=== PATIENT | female | born 1965 | race Caucasian/White ===

== ENCOUNTER → 2017-11-10 16:06 | Outpatient (CLI) | payer MEDICAID, SELFPAY ==
--- NOTE | 2017-11-10 16:10 | MM_ITS ---
MM Dig screening mamm BI w/CAD CAD Screening COMPARISON: None, previous mammograms more than 10 years ago and they're not available for review INDICATION: There is no personal or family history of breast cancer. There has been a previous biopsy right breast for benign disease TECHNIQUE: Standard CC and MLO images were obtained. R2 CAD reviewed. FINDINGS: Scattered fibroglandular densities are seen in both breast and the findings are bilateral and symmetrical. There is no suspicious lesion and there are no suspicious microcalcifications. IMPRESSION: Fibrofatty parenchyma with no suspicious lesion seen BI-RADS Category: 1 Negative RECOMMENDED FOLLOW-UP: 1YR - 1 YEAR FOLLOW-UP (A letter has been sent to the patient regarding results of the study.)
== END ==
PROVIDERS: PCP Emergency Medicine; Visit Provider Emergency Medicine
DX: Z12.31 Encounter for screening mammogram for malignant neoplasm of breast (principal)
CPT/HCPCS: 77067

== ENCOUNTER → 2018-08-10 17:19 | Outpatient (CLI) | payer MEDICAID, SELFPAY ==
[2018-08-10 17:36] LABS: Basophils % 0.3 % (0.1-2.0); Eosinophils # 0.2 K/mm3 (0.0-0.4); Eosinophils % 3.2 % (0.1-12.0); Hematocrit 40.1 % (37.0-47.0); Hemoglobin 13.4 g/dL (12.2-16.2); Lymphocytes # 2.2 K/mm3 (0.7-4.5); Lymphocytes % 34.5 % (10-50); Mean Corpuscular HGB Conc 33.4 g/dL (31.8-35.4); Mean Corpuscular Hemoglobin 29.9 pg (27.0-31.2); Mean Corpuscular Volume 89.4 fl (81-99); Mean Platelet Volume 9.5 fl (7.4-10.4); Monocytes # 0.4 K/mm3 (0.1-1.0); Monocytes % 6.9 % (1.7-9.3); Neutrophils # 3.5 K/mm3 (1.8-7.8); Neutrophils % 55.1 % (37.0-80.0); Platelet Count 264 K/mm3 (142-424); Red Blood Count 4.49 M/mm3 (4.20-5.40); Red Cell Distribution Width 13.7 % (11.5-17.5); White Blood Count 6.4 K/mm3 (4.8-10.8)
[2018-08-10 17:55] LABS: Alanine Aminotransferase 47 U/L (12-78); Albumin Level 4.2 gm/dL (3.4-5.0); Albumin/Globulin Ratio 1.4 (1.1-1.8); Alkaline Phosphatase 172 U/L (46-116); Anion Gap 13.3 mEq/L (5-15); Aspartate Amino Transferase 39 U/L (15-37); Bilirubin,Total 0.4 mg/dL (0.2-1.0); Blood Urea Nitrogen 15 mg/dL (7-18); C-Reactive Protein 1.3 mg/L (0.0-0.9); Calcium 9.2 mg/dL (8.5-10.1); Carbon Dioxide 26 mmol/L (21.0-32.0); Chloride 103 mmol/L (98-107); Chol/HDL Ratio 3.1 (1-3.5); Cholesterol 160 mg/dL (140-200); Creatinine,Serum 0.68 mg/dL (0.55-1.02); Estimated Glomerular Filt Rate 90 ml/min (>60); GFR (African American) 109 ML/MIN (>60); Glucose 87 mg/dL (74-106); HDL Cholesterol 51 mg/dL (29-89); LDL Cholesterol 97 mg/dL (0-130); Potassium 4.3 mmoL/L (3.5-5.1); Sodium 138 mmol/L (136-145); T4 (Thyroxine) 7.3 ug/dl (4.7-13.3); Thyroid Stimulating Hormone 1.98 uIU/ml (0.358-3.740); Total Protein,Serum 7.2 gm/dL (6.4-8.2); Triglycerides 60 mg/dL (30-200); VLDL Cholesterol 12 mg/dL (0-40)
[2018-08-10 19:03] LABS: Erythrocyte Sedimentation Rate 16 mm/hr (0-30)
[2018-08-12 12:12] LABS: Anti-Centromere B Antibodies <0.2 AI (0.0-0.9); Anti-Jo-1 <0.2 AI (0.0-0.9); Anti-Smith Antibody <0.2 AI (0.0-0.9); Antichromatin Antibodies <0.2 AI (0.0-0.9); Antiscleroderma-70 Antibodies <0.2 AI (0.0-0.9); RNP Antibodies 0.5 AI (0.0-0.9); Sjogren's Anti-SS-A <0.2 AI (0.0-0.9); Sjogren's Anti-SS-B <0.2 AI (0.0-0.9)
[2018-08-13 06:40] LABS: RA Latex Turbid. <10.0 IU/mL (0.0-13.9); Vitamin D 25 Hydroxy 15.4 ng/mL (30.0-100.0)
[2018-08-13 06:41] LABS: Anti-DNA (DS) Ab Qn 1 IU/mL (0-9)
[2018-08-15 15:02] LABS: Anti-Cyclic Citrullinated Pept 3 units (0-19)
== END ==
PROVIDERS: Visit Provider Physician Assistant
DX: M79.7 Fibromyalgia (principal); M25.50 Pain in unspecified joint; R63.5 Abnormal weight gain
CPT/HCPCS: 80053; 80061; 82652; 84436; 84443; 85025; 85651; 86140; 86200; 86225; 86235; 86431

== ENCOUNTER → 2018-11-15 09:02 | Outpatient (CLI) | payer MEDICAID, SELFPAY ==
--- NOTE | 2018-11-15 09:05 | US_ITS ---
US abdomen complete HISTORY: ITS.REASON: Abdominal pain and swelling ORDERING PHYSICIAN: TERRANCE Rodriguez PATIENT AGE: 53 years COMPARISON: None FINDINGS: PANCREAS:Unremarkable. No obvious mass or abnormal fluid collection. No ductal dilatation LIVER:No focal liver lesions demonstrated. Homogeneous echogenicity. No intrahepatic biliary ductal dilatation evident RIGHT KIDNEY:Unremarkable. Normal size and echogenicity. No hydronephrosis LEFT KIDNEY:Unremarkable. No hydronephrosis. Normal size and echogenicity. GALLBLADDER: Gallbladder is contracted with mildly thickened wall at nearly 5 mm. Common bile duct is normal at 5 mm. Suspect sludge within the gallbladder. No shadowing stones apparent. AORTA:No evidence of aneurysmal dilatation. SPLEEN:Unremarkable. Normal size and echogenicity ASCITES:None demonstrated. IMPRESSION: Contracted gallbladder with mildly thickened wall with sludge within the gallbladder. No shadowing stones. Otherwise negative abdominal ultrasound
== END ==
PROVIDERS: PCP Physician Assistant; Visit Provider Physician Assistant
DX: R19.00 Intra-abdominal and pelvic swelling, mass and lump, unspecified site (principal)
CPT/HCPCS: 76700

== ENCOUNTER → 2018-12-12 09:32 | Outpatient (CLI) | payer MEDICAID, SELFPAY ==
--- NOTE | 2018-12-12 09:33 | NM_ITS ---
PROCEDURE: NM HEPATOBILIARY W PHARM CLINICAL INDICATION: GB sludge Right upper quadrant pain, abnormal ultrasound COMPARISON: [facility] US abdomen complete from 11/15/2018 TECHNIQUE: Dose: 7.99 mCi technetium Choletec 1.3 mcg of CCK FINDINGS: Homogeneous activity is present within hepatic parenchyma. Gallbladder activity is visible by 15 minutes and small bowel activity by 45 minutes. Gallbladder ejection fraction is normal at 83 percent. Patient did complain of slight pain with CCK infusion. IMPRESSION: Unremarkable exam. No evidence of common or cystic duct obstruction with normal gallbladder ejection fraction Dictated by: Umair Donovan MD 12/12/2018 20:55 Signed by: <Electronically signed by Umair Donovan MD in [place]> 12/12/2018 20:55
== END ==
PROVIDERS: PCP Physician Assistant; Visit Provider Physician Assistant
DX: K82.8 Other specified diseases of gallbladder (principal)
CPT/HCPCS: 78227; A9537; J2805

== ENCOUNTER → 2020-11-25 15:37 | Outpatient (CLI) | payer MEDICAID, SELFPAY | PROVIDERS: PCP Physician Assistant; Visit Provider Physician Assistant | DX: Z20.822 Contact with and (suspected) exposure to COVID-19 (principal) | CPT/HCPCS: U0003 ==

== ENCOUNTER → 2021-05-20 16:00 | Outpatient (CLI) | payer MEDICAID, SELFPAY ==
[2021-05-20 19:12] LABS: Phencyclidine Screen,Urine Negative ng/ml (<25)
[2021-05-20 19:19] LABS: Amphetamine/Metha Screen,Urine Positive ng/ml (<1000); Barbiturates Screen,Urine Negative ng/ml (<200)
[2021-05-20 19:20] LABS: Benzodiazepines Screen,Urine Negative ng/ml (<200); Cannabinoid Screen,Urine Negative ng/ml (<50)
[2021-05-20 19:24] LABS: Cocaine Screen,Urine Negative ng/ml (<300); Methadone Screen,Urine Negative ng/ml (<300)
[2021-05-20 19:25] LABS: Opiate Screen,Urine Positive ng/ml (<300)
== END ==
PROVIDERS: Visit Provider Physician Assistant
DX: G47.00 Insomnia, unspecified (principal); Z79.899 Other long term (current) drug therapy
CPT/HCPCS: 80305